=== PATIENT | male | born 1995 | race Two or more races ===

== ENCOUNTER 2022-03-06 10:07 | Outpatient (CLI) | payer OTHER | END 2022-03-06 10:10 | disposition home or self-care (01) | LOC: RAD 10:07 | PROVIDERS: ATTEND Chiropractor | DX: M79.641 Pain in right hand (principal); M79.642 Pain in left hand ==

== ENCOUNTER 2025-07-15 11:22 | Emergency (ER) | payer OTHER ==
[~2025-07-15] VITALS: Ht 180.3 cm; Wt 72.6 kg
[2025-07-15 11:33] VITALS: BP 117/65; O2SAT 98
[2025-07-15] MEDS ORDERED: KETOROLAC TROMETHAMINE 60 MG VIAL IM ONE ×2 (12:30→12:40)
[2025-07-15] MEDS ORDERED: PIPERACILLIN/TAZOBACTAM SODIUM 3.375 GM VIAL IV ONE ×2 (14:00→14:18)
[2025-07-15 15:34] LABS: BASO % 0.3 % (0.1-1.2); EOS # 0.06 (0.04-0.54); EOS % 0.7 % (0.7-7.0); LYMPH # 1.26 (1.18-3.74); LYMPH % 14.3 % (19.3-53.1); MEAN PLATELET VOLUME 8.70 fl (9.4-12.4); MONO # 0.72 (0.24-0.82); MONO % 8.2 % (4.7-12.5); NEUT # 6.70 (1.56-6.13); NEUT % 76.3 % (34.0-71.1); RED CELL DISTRIBUTION WIDTH 13.7 % (11.6-14.4)
[2025-07-15 15:39] LABS: URINE APPEARANCE Clear; URINE BILIRRUBIN Negative (NEGATIVE); URINE BLOOD Moderate; URINE COLOR Yellow; URINE GLUCOSE Negative (NEGATIVE); URINE KETONE Negative (NEGATIVE); URINE LEUKOCYTE Negative; URINE NITRATE Negative; URINE PROTEIN 30 (NEGATIVE); URINE UROBILINOGEN 1.0 E.U./dl
[2025-07-15 15:40] LABS: ERYTHROCYTE SEDIMENTATION RATE 2 mm/hr (0-15)
[2025-07-15 15:42] LABS: URINE BACTERIA 55.1 uL (0.0-1933); URINE EPITHELIAL CELLS 3.5 uL (0.0-38.8); URINE RBC 115.2 uL (0.0-20.8); URINE WBC 9.9 uL (0.0-23.2)
[2025-07-15 15:52] LABS: URINE CAST 0.14 uL (0.0-1.40)
[2025-07-15 16:07] LABS: ALT/SGPT 21.0 U/L (12-78); AST/SGOT 14.0 U/L (15-37); BILIRUBIN TOTAL 0.83 mg/dL (0.3-1.2); BUN CREA RATIO 13.0 (7.0-25.0); CREATININE SERUM 0.92 mg/dL (0.70-1.30); GFR 95.96; GLOBULINA 3.1 G/DL (2.4-3.5); GLUCOSE FASTING 108.0 mg/dL (65-100); OSMOLALITY SERUM 280.0 MOSM/KG (275-295)
== END 2025-07-15 16:48 | disposition home or self-care (01) ==
LOC: ER 11:22
PROVIDERS: General Practice
DX: M13.88 Other specified arthritis, other site (principal); M65.842 Other synovitis and tenosynovitis, left hand; M25.552 Pain in left hip; Z88.8 Allergy status to other drugs, medicaments and biological substances

== ENCOUNTER 2025-10-14 12:30 | Emergency (ER) | payer OTHER ==
[~2025-10-14] VITALS: Ht 180.3 cm; Wt 61.2 kg
[2025-10-14 12:58] VITALS: BP 109/65; O2SAT 100
[2025-10-14] MEDS ORDERED: CEFTRIAXONE SODIUM 1,000 MG VIAL IM ONE (13:30)
[2025-10-14] MEDS ORDERED: ACETAMINOPHEN 500 MG GEL..CAP PO ONE (13:30)
[2025-10-14] MEDS ORDERED: DEXAMETHASONE SODIUM PHOSPHATE 4 MG/ML VIAL IM ONE (13:30)
[2025-10-14] MEDS ORDERED: GUAIFENESIN 100 MG/5 ML BLIST.PACK PO ONE (13:30)
[2025-10-14 17:30] LABS: BASO % 0.6 % (0.1-1.2); EOS # 0.07 (0.04-0.54); EOS % 1.3 % (0.7-7.0); LYMPH # 1.25 (1.18-3.74); LYMPH % 23.2 % (19.3-53.1); MEAN PLATELET VOLUME 8.60 fl (9.4-12.4); MONO # 0.41 (0.24-0.82); MONO % 7.6 % (4.7-12.5); NEUT # 3.61 (1.56-6.13); NEUT % 67.1 % (34.0-71.1); RED CELL DISTRIBUTION WIDTH 13.7 % (11.6-14.4)
[2025-10-14] MEDS ORDERED: ZITHROMAX200 MG PO (18:12)
[2025-10-14] MEDS ORDERED: VANACOF DM LIQ240 ML PO (18:12)
== END 2025-10-14 18:30 | disposition home or self-care (01) ==
LOC: ER 12:30
DX: J06.9 Acute upper respiratory infection, unspecified (principal); Z88.2 Allergy status to sulfonamides